=== PATIENT | male | born 1980 | race Caucasian/White ===

== ENCOUNTER 2017-11-06 08:00 | Outpatient (CLI) | payer MEDICARE ==
[2017-11-06 12:45] LABS: BASOPHILS % (AUTO) 0.3 %; EOSINOPHILS # (AUTO) 0.4 10^3/uL (0.0-0.7); EOSINOPHILS % (AUTO) 4.3 %; LYMPHOCYTES # (AUTO) 2.6 10^3/uL (1.5-3.5); LYMPHOCYTES % (AUTO) 29.6 %; MEAN CORPUSCULAR HEMOGLOBIN 27.9 pg (27.0-31.0); MEAN CORPUSCULAR HGB CONC 33.2 g/dL (32.0-36.0); MEAN CORPUSCULAR VOLUME 84.1 fL (80.0-94.0); MEAN PLATELET VOLUME 9.6 fL (7.4-11.4); MONOCYTES # (AUTO) 0.6 10^3/uL (0.0-1.0); MONOCYTES % (AUTO) 6.4 %; NEUTROPHILS # (AUTO) 5.1 10^3/uL (1.5-6.6); NEUTROPHILS % (AUTO) 59.4 %; PLT - PLATELET COUNT 212 10^3/uL (130-450); RED BLOOD COUNT 5.38 10^6/uL (4.70-6.10); RED CELL DISTRIBUTION WIDTH 14.2 % (12.0-15.0); WHITE BLOOD COUNT 8.6 x10^3/uL (4.8-10.8)
[2017-11-06 13:10] LABS: THYROID STIMULATING HORMONE 2.25 uIU/mL (0.34-5.60)
[2017-11-06 13:21] LABS: FOLATE 20.08 ng/mL (5.90 - >24.8)
[2017-11-06 13:23] LABS: ALBUMIN 3.9 g/dL (3.2-5.5); ALKALINE PHOSPHATASE 57 IU/L (42-121); ALT ALANINE AMINOTRANSFERASE 53 IU/L (10-60); AST ASPARTATE AMINOTRANSFERASE 42 IU/L (10-42); BUN - BLOOD UREA NITROGEN 8 mg/dL (6-20); CALCIUM 8.9 mg/dL (8.5-10.3); CARBON DIOXIDE - CO2 26 mmol/L (21-32); CHLORIDE 104 mmol/L (101-111); CHOL/HDL RATIO 5.4 (<5.0); CHOLESTEROL 163 mg/dL; CREATININE 1.1 mg/dL (0.6-1.2); GFR - MDRD 76 (>89); GLUCOSE 107 mg/dL (70-100); HDL CHOLESTEROL 30 mg/dL; LDL CHOLESTEROL,CALCULATED 105 mg/dL; LDL/HDL RATIO 3.5 (<3.6); SODIUM 137 mmol/L (135-145); TOTAL PROTEIN 7.8 g/dL (6.7-8.2); VLDL CHOLESTEROL 28 mg/dL
== END 2017-11-06 08:01 | disposition home or self-care (01) ==
LOC: LAB.N 08:00
PROVIDERS: ATTEND Nurse Practitioner
DX: I10 Essential (primary) hypertension (principal); E55.9 Vitamin D deficiency, unspecified; R53.83 Other fatigue
CPT/HCPCS: 36415; 80053; 80061; 82306; 82607; 82746; 83721; 84443; 85025

== ENCOUNTER 2018-05-24 14:59 | Outpatient (CLI) | payer MEDICARE, MEDICAID ==
--- NOTE | 2018-05-24 19:56 | MRI Report ---
Reason: TIC DISORDER Procedure Date: 05/24/2018 Accession Number: [id number] / [id number] Procedure: MRI - Brain W/O CPT Code: FULL RESULT: EXAM: MRI BRAIN WITHOUT CONTRAST EXAM DATE: 05/24/2018 05:41 PM. CLINICAL HISTORY: 38-year-old man with tic disorder. COMPARISON: None. TECHNIQUE: Multiplanar, multisequence T1-weighted and fluid-sensitive MR sequences of the brain were performed. Sequences optimized for routine evaluation. Other: None. IV Contrast: None. FINDINGS: Parenchyma: No evidence of acute infarct on diffusion weighted sequence. Parenchyma demonstrates normal signal intensity on T1- and T2-weighted sequences. No evidence of prior hemorrhage on susceptibility weighted sequence. Pituitary: Unremarkable. Ventricles and Extra-axial Spaces: Ventricles are symmetric and normal in size for age. Extra-axial spaces are unremarkable. Orbits: Unremarkable. Sinuses: Paranasal sinuses and mastoid air cells are clear. Major Vascular Flow Voids: Intact. IMPRESSION: 1. Normal brain MRI. No evidence of infarct, hemorrhage, or mass lesion. RADIA
== END 2018-05-24 15:00 | disposition home or self-care (01) ==
LOC: DI 14:59
PROVIDERS: ATTEND Nurse Practitioner
DX: F95.9 Tic disorder, unspecified (principal); R56.9 Unspecified convulsions
CPT/HCPCS: 70551

== ENCOUNTER 2018-12-19 09:53 | Outpatient (CLI) | payer MEDICARE, MEDICAID ==
[2018-12-19 12:34] LABS: BASOPHILS % (AUTO) 0.4 %; EOSINOPHILS # (AUTO) 0.4 10^3/uL (0.0-0.7); EOSINOPHILS % (AUTO) 4.4 %; HGB - HEMOGLOBIN 14.8 g/dL (14.0-18.0); LYMPHOCYTES # (AUTO) 2.7 10^3/uL (1.5-3.5); LYMPHOCYTES % (AUTO) 27.7 %; MEAN CORPUSCULAR HEMOGLOBIN 27.5 pg (27.0-31.0); MEAN CORPUSCULAR HGB CONC 32.2 g/dL (32.0-36.0); MEAN CORPUSCULAR VOLUME 85.5 fL (80.0-94.0); MEAN PLATELET VOLUME 11.5 fL (7.4-11.4); MONOCYTES # (AUTO) 0.7 10^3/uL (0.0-1.0); MONOCYTES % (AUTO) 6.7 %; NEUTROPHILS % (AUTO) 60.5 %; PLT - PLATELET COUNT 226 10^3/uL (130-450); RED BLOOD COUNT 5.38 10^6/uL (4.70-6.10); RED CELL DISTRIBUTION WIDTH 13.5 % (12.0-15.0); WHITE BLOOD COUNT 9.9 x10^3/uL (4.8-10.8)
[2018-12-19 13:03] LABS: ALBUMIN 3.9 g/dL (3.2-5.5); ALBUMIN/GLOBULIN RATIO 1.1 (1.0-2.2); ALKALINE PHOSPHATASE 56 IU/L (42-121); ALT ALANINE AMINOTRANSFERASE 34 IU/L (10-60); AST ASPARTATE AMINOTRANSFERASE 22 IU/L (10-42); BILIRUBIN,TOTAL 0.6 mg/dL (0.2-1.0); BUN - BLOOD UREA NITROGEN 12 mg/dL (6-20); CARBON DIOXIDE - CO2 27 mmol/L (21-32); CHLORIDE 104 mmol/L (101-111); CHOL/HDL RATIO 3.4 (<5.0); CHOLESTEROL 141 mg/dL; CREATININE 0.9 mg/dL (0.6-1.2); GFR - MDRD 95 (>89); GLUCOSE 92 mg/dL (70-100); HDL CHOLESTEROL 42 mg/dL; LDL CHOLESTEROL,CALCULATED 73 mg/dL; LDL/HDL RATIO 1.7 (<3.6); SODIUM 139 mmol/L (135-145); TOTAL PROTEIN 7.6 g/dL (6.7-8.2); VLDL CHOLESTEROL 26 mg/dL
== END 2018-12-19 10:00 | disposition home or self-care (01) ==
LOC: LAB.N 09:53
PROVIDERS: ATTEND Family Medicine
DX: I10 Essential (primary) hypertension (principal); E55.9 Vitamin D deficiency, unspecified; Z13.1 Encounter for screening for diabetes mellitus
CPT/HCPCS: 36415; 80053; 80061; 82306; 83036; 83721; 84443; 85025

== ENCOUNTER 2019-03-12 12:50 | Outpatient (CLI) | payer MEDICARE, MEDICAID ==
[2019-03-12 14:29] VITALS: BP 118/98
--- NOTE | 2019-03-12 14:29 | SLEEP CARE CONSULTATION ---
Information from patient questionnaire entered by Minda Fontenot. I have reviewed and concur with the information entered by Minda Fontenot. This document represents the service I personally performed and the decisions made by me, Patti Link MD, [facility]. History of Present Illness Reason for Visit: New patient Duration of Symptoms: 5 years Time it takes to fall asleep: at least 60 minutes Snores at night: Yes Observed to quit breathing while asleep: No Number of times waking at night: 2-3 Reasons for waking at night: reports: Snoring, Other (GERD, panic) Toss, Turn, or Twitch while sleeping: Yes Usually gets out of bed at: 0600, 0900, 1200 Feels refreshed in the morning: No Sleepy or fatigued during the day: Yes Ever fallen asleep while driving: Yes Takes day naps: Yes Dreams during day naps: No Prior sleep studies: No Additional HPI information: I had the pleasure of seeing Mr. Radford today regarding the possibility of him having a sleep disorder. As you know, he is a 39 year old gentleman who complains of loud snore. The patient tells me that he normally goes to bed around 3 4 am, and it takes him approximately 60+ minutes to fall asleep. He has never been observed to stop breathing in his sleep. However, he sleeps alone. He can recall waking up on the average of 2 - 3 times during the night. Most of the time he wakes up because of his own snoring, choking, and having to gasp for air. There is a lot of tossing and turning in his sleep. No somniloquy (sleep talking) or somnambulism (sleep walking). Generally there is no recollection of dreams. He reports jerking before falling asleep. He actually and an EEG done to look for seizure but the EEG was normal. In the morning he usually gets up out of the bed around 6 a.m. noon, not feeling refreshed nor rested. He usually does not have a morning headache. During the day he complains of feeling sleepy and fatigued. His score on Henry Sleepiness Scale is 12 out of 24. He has fallen asleep while driving and has gone out of the doc. He does not drive now. He usually takes naps during the day. Upon falling asleep during the day he denies having vivid dreams. He has never had sleep paralysis, experienced cataplexy but reports symptoms of restless leg syndrome. He also reports having impaired concentration during the day. Subjective Initial Henry Sleepiness Scale score: 12 Past Medical History Past Medical History: reports: Anxiety, Depression, Mood disorder, GERD Social History The patient's occupation is not employed. Patient is Single and lives in [place]. Have you smoked in the past 12 months: Yes Cigarettes per day (20/pack): 40 Years of smokin Quit date: 0161-1069 Smoking Pack Years: 20.0 Alcohol use: No Caffeine use: No Family History Family history of sleep disordered breathing: Yes Allergies and Home Medications Drug allergies reviewed: Yes Home medication list reviewed: Yes Review of Systems Weight gain over past 5 years: 80 Cardiovascular: reports: high blood pressure Respiratory: denies: shortness of breath, wheeze, sputum production, chronic cough, other Gastrointestinal: reports: nausea, vomitting, diarrhea Urinary: reports: frequency Neurological: denies: headaches, seizure, head trauma, disorientation, speech dysfunction, gait or balance problems, fainting or unconsciousness, other Psychiatric: reports: anxiety, depression, mood disorder Ear/Nose/Throat: reports: nasal congestion, sinus problems, dry mouth/throat Endocrine: reports: increased appetite, unexplained weakness Musculoskeletal: denies: joint pain, neck pain, back pain, joint swelling, muscle pain or cramping, mobility problems, other Immunologic: reports: allergies to food or environment Physical Exam Vital signs obtained and entered by: Dr. Link Blood Pressure: 118/98 Cuff size: regular Heart Rate: 73 O2 Saturation: 97 Height: 5 ft 9 in Weight: 284 lb Body Mass Index: 41.9 BMI Classification: Obesity Class 3 Neck circumference: 18 Mood/affect: normal HEENT: No craniofacial malformation Nostrils: patent to airflow Turbinates: normal Septum: midline Mouth and throat: narrow oropharynx Soft palate: long Hard palate: normal Uvula: normal Uvula visualization: 50% Mallampati Class II Tongue: normal in size Tonsils: small Chin and jaw: normal size and position Neck: normal w/o lymphadenopathy or thyromegaly Heart: regular rate and rhythm Lungs: clear bilaterally Abdomen: soft, non-tender Extremities: no edema or clubbing Neurologic: intact, no focal deficits Impression and Plan IMPRESSION: 1. Obstructive Sleep Apnea-Hypopnea Syndrome, as suggested by history of loud and irregular snoring, nocturnal choking, frequent awakenings during the night, unrefreshed sleep, cognitive impairment, and daytime hypersomnolence. Narrow oropharynx and obesity are common predisposing factors for obstructive sleep apnea-hypopnea syndrome. Pathophysiology of sleep-disordered breathing was discussed. I recommend proceeding to polysomnography to confirm the diagnosis and to assess severity. If he has significant sleep disordered breathing, a manual CPAP titration study will also be performed to find the optimal treatment pressure. I informed the patient of what the sleep studies involve and after so me discussion, he agreed to proceed. Plan: 1. Schedule polysomnography + manual CPAP titration study 2. Avoid long distance driving or when feeling sleepy. 3. Avoid alcohol, sedative and muscle relaxant around bedtime. 4. Attempt to lose weight. 5. Return in 1 to 2 weeks after the study to discuss results and initiate therapy. I spent 100% of this 20 minute visit face to face with the patient with greater than 50% of this was spent time counseling the patient and coordination of care.
== END 2019-03-12 12:51 | disposition home or self-care (01) ==
LOC: SC 12:50
PROVIDERS: ATTEND Internal Medicine Pulmonary Disease
DX: G47.10 Hypersomnia, unspecified (principal); G47.8 Other sleep disorders; R41.89 Other symptoms and signs involving cognitive functions and awareness; R06.83 Snoring
CPT/HCPCS: 99203; G0463; 99212

== ENCOUNTER 2019-03-13 08:30 | Outpatient (CLI) | payer MEDICARE, MEDICAID | END 2019-03-13 23:59 | disposition home or self-care (01) | LOC: SC 08:30 | PROVIDERS: ATTEND Internal Medicine Pulmonary Disease | DX: G47.33 Obstructive sleep apnea (adult) (pediatric) (principal) | CPT/HCPCS: 95810 ==

== ENCOUNTER 2019-03-18 10:51 | Outpatient (CLI) | payer MEDICARE, MEDICAID ==
--- NOTE | 2019-03-18 12:11 | SLEEP CARE CONSULTATION ---
Information from patient questionnaire entered by Minda Fontenot. I have reviewed and concur with the information entered by Minda Fontenot. This document represents the service I personally performed and the decisions made by me, Patti Link MD, [facility]. History of Present Illness Initial [place] Sleepiness Scale score: 12 Current [place] Sleepiness Scale score: 11 Additional HPI information: HPI: Mr. Radford returned for follow up of the sleep study he had on 03/13/19. The polysomnography showed that the patient had reduced sleep efficiency due to frequent and prolonged awakenings in the first half of the night. Despite moderate sleep fragmentation,, the sleep architecture was normal. Respiratory monitoring showed mild obstructive sleep apnea-hypopnea (AHI = 10.8) associated with frequent arousals, oxyhemoglobin desaturation and mild hypoxia (pam oxygen saturation of 85%). The respiratory events occurred mainly during supine sleep (supine AHI = 52.7; non-supine = 7.63). Snore was moderate in intensity. There was no significant periodic leg movement of sleep. Cardiac rhythm was normal sinus rhythm without significant arrhythmia. No abnormal behavior (parasomnia) observed during the night. The patient was informed of these findings. I explained to him the pathophysiology behind obstructive sleep apnea. We then spent quite a bit of time discussing different treatment options. For mild obstructive sleep apnea, surgery and oral appliance are alternatives to nasal CPAP therapy but in moderate or severe cases, nasal CPAP is the most effective and reliable treatment. Weight loss in an obese individual is strongly recommended. After some discussion, he opted to go with the nasal CPAP therapy. I explained to him how CPAP machine works and what to expect when using the machine. He has a roommate that uses a CPAP. He is encouraged to use CPAP every night especially in the first 2 to 3 nights in order to get used to it. He should call his CPAP supplier or me to discuss any mechanical problem that may occur. If he snores or feels like he is not getting enough air from the machine, he should notify me and I will increase the pressure. Allergies and Home Medications Drug allergies reviewed: Yes Home medication list reviewed: Yes Review of Systems Review of systems same as previous: Yes Physical Exam Weight: 284 lb Impression and Plan IMPRESSION: 1. Obstructive Sleep Apnea-Hypopnea Syndrome, mild (severe when supine), associated with mild hypoxemia and sleep fragmentation. Possibly, this is the cause of the patients symptoms of nocturnal choking, unrefreshed sleep, and excessive daytime sleepiness. As mentioned above, the patient will be started on autoCPAP set generically between 5 and 15 cmH2O. A manual CPAP/BiPAP titration study will be ordered. PLAN: 1. Prescription made for an autoCPAP, heated humidifier, and related supplies. 2. Attempt to lose weight and avoid alcohol consumption near bedtime. 3. Return for a manual CPAP/BiPAP titration study. 4. Return in six weeks for follow up. I will assess his response and compliance at that time. I spent 100% of this 20 minute visit face to face with the patient with greater than 50% of this was spent time counseling the patient and coordination of care.
== END 2019-03-18 10:52 | disposition home or self-care (01) ==
LOC: SC 10:51
PROVIDERS: ATTEND Internal Medicine Pulmonary Disease
DX: G47.33 Obstructive sleep apnea (adult) (pediatric) (principal)
CPT/HCPCS: 99213; G0463; 99212

== ENCOUNTER 2021-12-06 11:35 | Emergency (ER) | payer MEDICARE, OTHER ==
[2021-12-06] MEDS ORDERED: ALBUTEROL 1 PUFF INH STA (12:53)
--- NOTE | 2021-12-06 12:56 | ED Physician Documentation ---
PD HPI URI - Stated complaint Stated Complaint: CONGESTION - Chief complaint Chief Complaint: Heent - History obtained from History obtained from: Patient - History of Present Illness Timing - onset: How many days ago (8) Timing duration: Days (8) Timing details: Gradual onset Pain level max: 0 Pain level now: 0 Associated symptoms: Nasal congestion, Rhinorrhea, Productive cough. No: Fever, Chills, Chest pain, Dyspnea, NVD Contributing factors: Sick contact, Travel. No: COPD / asthma Improves by: Rest Worsened by: Activity, Breathing - Additional information Additional information: Patient is a 41-year-old male who is been sick for the past 8 days. Rhinorrhea, congestion, cough with green sputum. No fevers. No chills. Nothing seems to make it better or worse. Recently traveled to [place]. Has not taken a COVID test. Review of Systems Constitutional: denies: Fever, Chills Nose: reports: Rhinorrhea / runny nose, Congestion Throat: reports: Sore throat Cardiac: denies: Palpitations Respiratory: reports: Cough. denies: Dyspnea, Wheezing GI: denies: Abdominal Pain, Nausea, Vomiting, Diarrhea Skin: denies: Rash PD PAST MEDICAL HISTORY - Past Medical History Past Medical History: Yes Neuro: Seizure disorder - Past Surgical History Past Surgical History: No - Present Medications Home Medications: Ambulatory Orders Medication Instructions Recorded Confirmed Albuterol Sulf [Ventolin Hfa 1 - 2 puffs INH Q4HR PRN #1 each 12/06/21 Inhaler] Benzonatate [Tessalon] 200 mg PO TID PRN #30 cap 12/06/21 Cetirizine HCl/Pseudoephedrine 1 each PO BID PRN #30 ea 12/06/21 [Zyrtec-D Tablet] - Allergies Allergies/Adverse Reactions: Allergies Allergy/AdvReac Type Severity Reaction Status Date / Time alprazolam [From Xanax] Allergy Cramps Verified 12/06/21 11:46 PD ED PE NORMAL - Vitals Vital signs reviewed: Yes - General General: Alert and oriented X 3, No acute distress - HEENT HEENT: PERRL, Ears normal, Moist mucous membranes, Pharynx benign - Neck Neck: Supple, no meningeal sign - Cardiac Cardiac: RRR - Respiratory Respiratory: No respiratory distress, Other (Rhonchi right lower lobe) - Abdomen Abdomen: Soft, Non tender, Non distended - Derm Derm: Warm and dry, No rash - Extremities Extremities: No edema - Neuro Neuro: Alert and oriented X 3 - Psych Psych: Normal mood, Normal affect Results - Vitals Vitals: Vital Signs - 24 hr 12/06/21 12/06/21 11:44 13:53 Temperature 36.4 C L 36.4 C L Heart Rate 96 99 Respiratory 16 16 Rate Blood Pressure 153/100 H 131/92 H O2 Saturation 96 96 Oxygen O2 Source Room air - Rads (name of study) Chest x-ray Radiology: Final report received, EMP read contemporaneously, See rad report (No acute abnormality) PD MEDICAL DECISION MAKING - ED course Complexity details: reviewed results, re-evaluated patient, considered differential, d/w patient ED course: Patient is well-appearing, nontoxic. Afebrile. No acute findings on chest x- ray. No evidence of pneumonia. No fevers. No hypoxia. No respiratory distress. Feels better after albuterol inhaler. Will prescribe this for home. We will continue supportive care and have him follow-up with his doctor. Patien t counseled regarding signs and symptoms for which I believe and urgent re- evaluation would be necessary. Patient with good understanding of and agreement to plan and is comfortable going home at this time This document was made in part using voice recognition software. While efforts are made to proofread this document, sound alike and grammatical errors may occur. Departure - Departure Disposition: 01 Home, Self Care Clinical Impression: Viral URI Condition: Good Instructions: ED Viral Syndrome Follow-Up: your,doctor in 1 week if not better [Other] Prescriptions: Albuterol Sulf [Ventolin Hfa Inhaler] 1 - 2 puffs INH Q4HR PRN #1 each PRN Reason: Shortness Of Air/Wheezing Benzonatate [Tessalon] 200 mg PO TID PRN #30 cap PRN Reason: Cough Cetirizine HCl/Pseudoephedrine [Zyrtec-D Tablet] 1 each PO BID PRN #30 ea PRN Reason: nasal congestion Comments: Your prescriptions were sent to [facility] in [place]. Drink plenty of fluids and rest. Return if you worsen. Use the medications as prescribed. Your x-ray does not show any pneumonia today. Discharge Date/Time: 12/06/21 14:09
--- NOTE | 2021-12-06 13:18 | XRAY Report ---
PROCEDURE: Chest 2 View X-Ray INDICATIONS: cough, RLL rhonchi TECHNIQUE: 2 view(s) of the chest. COMPARISON: None. FINDINGS: Surgical changes and devices: None. Lungs and pleura: No pleural effusions or pneumothorax. Lungs are clear. Mediastinum: Cardiac silhouette is at the upper limits of normal in size. No evidence of pulmonary v ascular congestion. Bones and chest wall: No suspicious bony abnormalities. Soft tissues appear unremarkable. IMPRESSION: No acute cardiopulmonary abnormality. Reviewed by: Dominik Hawkins MD on 12/06/2021 1:16 PM PDT Approved by: Dominik Hawkins MD on 12/06/2021 1:16 PM PDT Station ID: [id number]
[2021-12-06 13:54] VITALS: BP 131/92
== END 2021-12-06 14:09 | disposition home or self-care (01) ==
LOC: ED 11:35
DX: J06.9 Acute upper respiratory infection, unspecified (principal)
CPT/HCPCS: 71046; 94640; 94664; 99283; 99284; U0004